=== PATIENT | female | born 1995 | race Caucasian/White ===

== ENCOUNTER 2020-12-07 15:12 | Outpatient (CLI) | payer OTHER ==
[2020-12-08 06:17] LABS: SARS-CoV-2 PCR by NAA Not Detected (NotDetected)
== END 2020-12-07 15:13 | disposition home or self-care (01) ==
LOC: LABBT 15:12
PROVIDERS: ATTEND Obstetrics & Gynecology
DX: Z20.822 Contact with and (suspected) exposure to COVID-19 (principal)
CPT/HCPCS: 87635; U0003; U0005

== ENCOUNTER 2020-12-11 10:11 | Inpatient (IN) | payer OTHER ==
[2020-12-11] MEDS ORDERED: Famotidine/PF 20 mg/2ml Vial ONE (10:19)
[2020-12-11] MEDS ORDERED: Promethazine HCl 25 MG/ML VIAL IM PRN ×3 (10:45→16:18)
[2020-12-11] MEDS ORDERED: Bicitra 30 ML UDCUP PO PRN (10:45)
[2020-12-11] MEDS ORDERED: Ondansetron PF 4 MG/2 ML Vial IVP PRN ×3 (10:45→16:18)
[2020-12-11] MEDS ORDERED: Famotidine/PF 20 mg/2ml Vial SLOW IVP PRN (10:45)
[2020-12-11] MEDS ORDERED: hydrALAZINE 20 MG/ML VIAL SLOW IVP PRN ×2 (10:45→16:18)
[2020-12-11] MEDS ORDERED: Lactated Ringer's 1,000 ML IV SCH (10:45)
[2020-12-11] MEDS ORDERED: CEFAZOLIN 2 GM in Premix Bag 1 BAG IVPB SCH (10:45)
--- NOTE | 2020-12-11 10:50 | PDOC.LDHP ---
Labor and Delivery H&P HPI: 25 y/o at 39 and 4/7 weeks for repeat . Patient has Thrombocytopenia with platelet count of 80 when last checked in clinic. This is most likely caused by . We will recheck today and discuss further with anesthesia for mode of anesthesia decision making. Due date: 12/14/20 Grav: 2 Para: 1 Abnormal US findings: No Current medications: pre- vitamins Previous surgical history: low tranverse CS Allergies/Adverse Reactions: Allergies Allergy/AdvReac Type Severity Reaction Status Date / Time No Known Allergies Allergy Verified 09/15/13 01:44 Social history: none - Physical Exam Vital signs reviewed and normal: yes General: NAD, resting, breathing through contractions Heart: RRR Lungs: CTAB Abdomen: gravid Extremeties: no edema FHT: category 1 - Assessment L&D Assessment: scheduled repeat section - Plan Plan: admit to L&D, to OR for section
[2020-12-11 10:55] VITALS: BMI 32.5
[2020-12-11] MEDS ORDERED: Morphine PF 10 MG/10 ML VIAL ONE (11:50)
[2020-12-11] MEDS ORDERED: Phenylephrine 40 MG/NS 250 ML 250 ML ONE (11:51)
[2020-12-11] MEDS ORDERED: Oxytocin 10 UNITS/ML VIAL ONE ×2 (11:51→13:37)
[2020-12-11 12:07] LABS: Hemoglobin 11.2 g/dL (12.0-16.0); Mean Corpuscular HGB CONC 34.2 g/dL (32.0-36.0); Mean Corpuscular Hemoglobin 31.8 pg (27.0-31.0); Mean Corpuscular Volume 93.1 fL (78.0-98.0); Mean Platelet Volume 13.2 fL (7.4-10.4); Platelet Count 58 thou/uL (130-400); RBC Distribution Width 12.8 % (11.5-14.5); White Blood Cell (WBC) Count 6.9 thou/uL (4.8-10.8)
[2020-12-11 12:11] LABS: HBSAg Index 0.25 S/CO (0-0.99); Hep B Surf Ag Non-Reactive S/CO (NonReactive)
[2020-12-11 12:13] LABS: Syphilis Antibody Nonreactive (Nonreactive); Syphilis Antibody Index 0.02 S/CO (<1.00 Non-Reactive)
[2020-12-11] MEDS ORDERED: Fentanyl 100 MCG/2 ML VIAL ONE ×2 (12:25→13:37)
[2020-12-11 12:42] LABS: Platelet Count 57 thou/uL (130-400)
[2020-12-11] MEDS ORDERED: Ondansetron HCl/PF 4 MG/2 ML Vial IVP PRN (13:39)
[2020-12-11] MEDS ORDERED: Meperidine HCl/PF 25 MG/ML VIAL SLOW IVP PRN (13:39)
[2020-12-11] MEDS ORDERED: HYDROmorphone 2 MG/ML VIAL SLOW IVP PRN (13:39)
[2020-12-11] MEDS ORDERED: Promethazine HCl 25 MG SUPP PR PRN (13:39)
[2020-12-11] MEDS ORDERED: diphenhydrAMINE 50 MG/ML VIAL IVP PRN (13:39)
[2020-12-11] MEDS ORDERED: L&D-Morphine 4 MG/ML VIAL SLOW IVP PRN (13:39)
[2020-12-11] MEDS ORDERED: Naloxone HCl 0.4 mg/ml Vial IVP PRN ×2 (13:39)
[2020-12-11] MEDS ORDERED: Naloxone HCl 0.4 mg/ml Vial IV PRN (13:39)
[2020-12-11] MEDS ORDERED: fentaNYL Citrate/PF 2,000 MCG in Sodium Chloride 0.9% 60 ML IV PRN (13:43)
[2020-12-11] MEDS ORDERED: Communication Order-Pharmacy FS SCH (13:45)
[2020-12-11] MEDS ORDERED: Meperidine HCl/PF 25 MG/ML VIAL ONE (14:09)
[2020-12-11] MEDS ORDERED: Fentanyl 4 mcg/Bup 0.1% Cadd 100 ML ONE (14:22)
[2020-12-11] MEDS ORDERED: Methylergonovine 0.2 MG/ML VIAL IM PRN (16:18)
[2020-12-11] MEDS ORDERED: Zolpidem Tartrate 5 MG TAB PO PRN (16:18)
[2020-12-11] MEDS ORDERED: Bisacodyl 10 MG SUPP PR PRN (16:18)
[2020-12-11] MEDS ORDERED: Misoprostol 200 MCG TAB PR PRN (16:18)
[2020-12-11] MEDS ORDERED: Lanolin Ointment 7 GM TUBE TOP PRN (16:18)
[2020-12-11] MEDS ORDERED: diphenhydrAMINE 25 MG CAP PO PRN (16:18)
[2020-12-11] MEDS ORDERED: NS w/ Oxytocin 30 units 500 ML IVPB SCH (16:45)
[2020-12-11] MEDS: Simethicone Chewable 80 MG TAB PO PRN (20:03)
[2020-12-11] MEDS: Docusate Calcium (SURFAK) 240 MG CAP PO SCH (22:30)
[2020-12-11] MEDS: Ibuprofen 800 MG TAB PO SCH (22:30)
[2020-12-12 08:07] LABS: Hemoglobin 9.3 g/dL (12.0-16.0); Mean Corpuscular HGB CONC 33.2 g/dL (32.0-36.0); Mean Corpuscular Hemoglobin 31.1 pg (27.0-31.0); Mean Corpuscular Volume 93.6 fL (78.0-98.0); Mean Platelet Volume 12.3 fL (7.4-10.4); Platelet Count 84 thou/uL (130-400); RBC Distribution Width 12.7 % (11.5-14.5); Red Blood Cell (RBC) Count 2.98 mill/uL (4.20-5.40); White Blood Cell (WBC) Count 9.4 thou/uL (4.8-10.8)
[2020-12-12] MEDS ORDERED: Measles/Mumps/Rubella 10 MCG/0.5 ML VIAL SC ONE (09:00)
[2020-12-12] MEDS ORDERED: Varicella virus, LIVE 0.5 ML VIAL SC ONE (09:00)
[2020-12-12] MEDS ORDERED: Adacel (T-DAP) 0.5 ML SYRINGE IM ONE (09:00)
[2020-12-12] MEDS ORDERED: fentaNYL Citrate/PF 2,000 MCG in Sodium Chloride 0.9% 60 ML IV PRN (09:51)
[2020-12-12] MEDS ORDERED: Acetaminophen 500 MG TAB PO SCH (10:00)
[2020-12-12] MEDS ORDERED: Ketorolac Tromethamine 30 MG/ML VIAL IVP SCH (10:00)
[2020-12-12] MEDS ORDERED: Ondansetron PF 4 MG/2 ML Vial IVP SCH (10:00)
[2020-12-12] MEDS: Ibuprofen 800 MG TAB PO SCH ×3 (10:22→23:32)
[2020-12-12] MEDS: Prenatal Vitamin 1 TAB PO SCH (10:24)
[2020-12-12] MEDS: Docusate Calcium (SURFAK) 240 MG CAP PO SCH ×2 (10:24→21:23)
[2020-12-12] MEDS: Simethicone Chewable 80 MG TAB PO PRN ×2 (11:55→21:23)
[2020-12-12] MEDS ORDERED: HYDROcodone/Acetaminophen 5/325 mg Tablet PO SCH (17:30)
[2020-12-12] MEDS: Acetaminophen 500 MG TAB PO SCH ×2 (18:12→23:30)
[2020-12-12] MEDS ORDERED: HYDROcodone/Acetaminophen 5/325 mg Tablet PO PRN (21:05)
[2020-12-12] MEDS: HYDROcodone/Acetaminophen 5/325 mg Tablet PO PRN (23:50)
[2020-12-13] MEDS: Simethicone Chewable 80 MG TAB PO PRN ×2 (04:11→09:01)
[2020-12-13] MEDS: HYDROcodone/Acetaminophen 5/325 mg Tablet PO PRN ×2 (04:11→09:01)
[2020-12-13] MEDS: Acetaminophen 500 MG TAB PO SCH ×2 (04:18→10:26)
[2020-12-13] MEDS: Ibuprofen 800 MG TAB PO SCH (06:53)
[2020-12-13] MEDS: Prenatal Vitamin 1 TAB PO SCH (09:00)
[2020-12-13] MEDS: Docusate Calcium (SURFAK) 240 MG CAP PO SCH (09:01)
[2020-12-13 11:31] VITALS: BP 117/79; TEMP 98.4
--- NOTE | 2020-12-13 13:09 | PDOC.PP ---
Post Progress Note Post Day #: 1 PO intake tolerated: yes Flatus: yes Ambulation: yes Vital Signs (12 hours) Temp Pulse Resp BP Pulse Ox 12/13/20 11:30 98.4 F 107 H 20 117/79 12/13/20 08:01 98.1 F 87 20 115/67 99 12/13/20 04:10 97.6 F 84 18 127/83 Weight Weight 178 lb - Physical Examination General: NAD Cardiovascular: no m/r/g, RRR Respiratory: clear to auscultation bilaterally, non-labored breathing Abdominal: + bowel sounds, lochia, no distention, appropriately TTP Extremities: negative homans (B) Skin: CS incision dry & intact, no rash Neurological: no gross focal deficits Psychiatric: A&Ox3, normal affect Result Diagrams: 12/12/20 05:28 Additional Labs: Post Labs Hep Bs Antigen Non-Reactive S/CO (NonReactive) 12/11/20 11:10 Blood Type A NEGATIVE 12/11/20 11:10
--- NOTE | 2020-12-13 13:10 | PDOC.PP ---
Post Progress Note Post Day #: 2 PO intake tolerated: yes Flatus: yes Ambulation: yes Vital Signs (12 hours) Temp Pulse Resp BP Pulse Ox 12/13/20 11:30 98.4 F 107 H 20 117/79 12/13/20 08:01 98.1 F 87 20 115/67 99 12/13/20 04:10 97.6 F 84 18 127/83 Weight Weight 178 lb - Physical Examination General: NAD Cardiovascular: no m/r/g, RRR Respiratory: clear to auscultation bilaterally, non-labored breathing Abdominal: + bowel sounds, lochia, no distention Extremities: negative homans (B) Skin: CS incision dry & intact, no rash Neurological: no gross focal deficits Psychiatric: A&Ox3, normal affect Result Diagrams: 12/12/20 05:28 Additional Labs: Post Labs Hep Bs Antigen Non-Reactive S/CO (NonReactive) 12/11/20 11:10 Blood Type A NEGATIVE 12/11/20 11:10
--- NOTE | 2020-12-13 14:29 | OP ---
DATE OF PROCEDURE: 12/11/2020 TIME SEEN: 1319 hours Central Standard Time. PREOPERATIVE DIAGNOSIS: Intrauterine at 39 weeks and 4 days with thrombocytopenia in . POSTOPERATIVE DIAGNOSIS: Intrauterine at 39 weeks and 4 days with thrombocytopenia in . PROCEDURE PERFORMED: Repeat low transverse section under general anesthesia due to thrombocytopenia and inability to do regional anesthesia. FINDINGS: Viable male , weighing 3582 g or 7 pounds 14 ounces, Apgars 8 and 9. QUANTITATIVE BLOOD LOSS: 845 mL. COMPLICATIONS: None. DESCRIPTION OF PROCEDURE: The patient was consented and taken back to the operating room where spinal anesthesia was found to be adequate. She was then prepped and draped in the normal sterile fashion. A timeout was performed by the entire operative team. The incision was then marked with a marking pen tested using sharp pickups. An incision was then made with a scalpel. The incision was carried through the adipose tissue down to the underlying rectus fascia using both sharp dissection as well as cautery. Once the fascia was identified, it was incised in the midline and then the fascial incision was carried through in both lateral directions using sharp as well as cautery dissection techniques. Next, the superior aspect of the rectus fascia was grasped with 2 Manuel clamps, which was tented up and the rectus muscles were dissected off using blunt dissection as well as cautery dissection. Similarly, the inferior aspect of the fascial incision was grasped with 2 Manuel clamps, tented up and the rectus muscles were dissected off bluntly as well as sharply. Next, the rectus muscles were in the midline and the peritoneum identified. The peritoneum was then carefully grasped with 2 hemostats and entered sharply. The peritoneal incision was extended superiorly and inferiorly and bladder blade was placed in the lower abdomen. At this point, the uterus was identified and the bladder flap was then developed using pickups with teeth as well as Metzenbaum scissors in both lateral directions. The bladder flap was then dissected downwards using the glove machine operator's finger as well as Metzenbaum scissors. The bladder blade was replaced. The lower uterine segment was then identified and entered sharply using a clean scalpel. The uterine incision was then dissected downwards until thin layer of muscle remained and this was entered bluntly using a hemostat to avoid any injury to the baby. The uterine incision was then stretched using two fingers in both lateral directions. An amniotomy was performed artificially using a hemostat and the baby was delivered using fundal pressure in a gentle fashion. Once out, the baby's mouth and nose were bulb suctioned, cord clamped and cut, and the baby was handed to waiting attendants. Next, the uterus was exteriorized, cleared of all clots and debris and the uterine incision was repaired with #1 Monocryl in a running locking fashion. A 2nd suture of the same type was used to obtain complete hemostasis at the uterine incision. The bladder flap was reapproximated using 3-0 Monocryl. Next, patient's left and right adnexa were inspected and appeared to be within normal limits. The posterior cul-de-sac was blotted dry and hemostasis assured. One more look at the uterine incision demonstrated hemostasis. Next, the uterus was replaced back within the abdomen. The peritoneum was reapproximated using 2-0 Monocryl without difficulty. The rectus muscles were then allowed to come back together and 0 chromic was used to aid in reapproximation of the muscle as necessary. The rectus fascia was then reapproximated in a running fashion using 0 Vicryl suture. The adipose tissue was then examined and appeared to be well approximated without any obvious separations. Finally, the skin was reapproximated with 3-0 Monocryl on a Chacho needle without difficulty and Dermabond adhesive was applied to the skin. Once the glue was dry, the drapes were removed and the patient was transferred to an ambulatory bed where she was taken to recovery awake and in stable condition. Sponge, lap, and needle counts were correct x3. Job ID: [id number]
== END 2020-12-13 14:25 | disposition home or self-care (01) | DRG 787 ==
LOC: L&D 10:11 → 3SW 17:27
PROVIDERS: ADMIT Obstetrics & Gynecology; ATTEND Obstetrics & Gynecology
PROC: 10D00Z1 Extraction of Products of Conception, Low, Open Approach (ICD-10-PCS; principal; 2020-12-11)
PROC: 3E0234Z Introduction of Serum, Toxoid and Vaccine into Muscle, Percutaneous Approach (ICD-10-PCS; 2020-12-11)
PROC: 30233R1 Transfusion of Nonautologous Platelets into Peripheral Vein, Percutaneous Approach (ICD-10-PCS; 2020-12-11)
DX: O34.211 Maternal care for low transverse scar from previous cesarean delivery (principal); O99.12 Other diseases of the blood and blood-forming organs and certain disorders involving the immune mechanism complicating childbirth; Z3A.39 39 weeks gestation of pregnancy; Z37.0 Single live birth; Z20.822 Contact with and (suspected) exposure to COVID-19; O26.893 Other specified pregnancy related conditions, third trimester; D69.6 Thrombocytopenia, unspecified; Z67.11 Type A blood, Rh negative
CPT/HCPCS: 36415; 36430; 51702; 85027; 85461; 86780; 86850; 86900; 86901; 87340; 90384; 96372; J2175; J2270; J3010; J3490; P9035; S0028